=== PATIENT | male | born 1950 | race Caucasian/White ===

== ENCOUNTER 2017-08-27 16:13 | Inpatient (IN) | payer MEDICARE ==
[~2017-08-27] VITALS: Ht 167.6 cm; Wt 60.1 kg
[~2017-08-27 16:13] MED LIST: ADVAIR HFA 230M12 GM INH; ASPIR 8181 MG PO; ASPIRIN325 PO; AUGMENTIN 875875 MG PO; FLOMAX0.4 MG PO; HYDROCODONE-AP1 EAC6 PO; LIPITOR10 MG PO; MOBIC7.5 MG PO; MUCINEX TA600 MG/TA2 PO; OMEPRAZOLE40 MG PO; PACERONE 200 M200 M1 PO; PREDNISONE 10 M10 MG PO; PROAIR RESPICL90 MCG IH; SINGULAIR 10 MG10 M1 PO; SPIRIVA INH; ZANAFLEX2 MG PO
[2017-08-27 16:27] VITALS: BP 117/71
--- NOTE | 2017-08-27 16:41 | NUR ---
PATIENT WAS SATTING 89-90 WITH ROOM AIR ASSESSMENT WAS BEING COMPLETED. PLACED ON O2 AT 2LPM AT 1639 AND SAO2 AT 1642 WAS 95%
[2017-08-27 17:26] LABS: HEMATOCRIT 36.5 % (42.0-52.0); HEMOGLOBIN 12.1 gm/dL (14.0-18.0); MCH 29.5 pg (26.0-34.0); MCHC 33.1 g/dL (28.0-37.0); MCV 89.1 fL (80.0-100.0); MPV 6.6 fl. (7.2-11.1); NUCLEATED RBCS 0 /100WBC; PLATELET COUNT* 208 thou/uL (150-400); RDW-CV 13.8 % (10.5-14.5); WBC 11.4 thou/uL (4.0-11.0)
[2017-08-27 17:38] LABS: CALCIUM 8.4 mg/dL (8.5-10.1); CREATININE 0.7 mg/dL (0.6-1.3); POTASSIUM 4.1 mmol/L (3.5-5.1)
[2017-08-27 17:50] LABS: ALBUMIN 2.8 g/dL (3.4-5.0); TOTAL BILIRUBIN 0.3 mg/dL (<0.1-1.0); TOTAL PROTEIN 6.7 g/dL (6.4-8.2)
[2017-08-27 17:51] LABS: INFLUENZA A ANTIGEN None Detected (None Detect); INFLUENZA B ANTIGEN None Detected (None Detect)
[2017-08-27 18:22] LABS: ABSOLUTE LYMPHOCYTES 2.4 thou/uL (0.8-5.3); ABSOLUTE MONOCYTES 0.7 thou/uL (0.0-1.2); ABSOLUTE NEUTROPHILS 8.3 thou/uL (1.6-8.1); PLATELET ESTIMATE ADEQUATE
[2017-08-27 20:02] LABS: URINE BILIRUBIN NEGATIVE (Negative); URINE BLOOD 2+ (Negative); URINE CLARITY CLEAR; URINE COLOR YELLOW; URINE GLUCOSE-RANDOM NEGATIVE (Negative); URINE KETONES TRACE (Negative); URINE LEUKOCYTES-REFLEX NEGATIVE (Negative); URINE NITRITE-REFLEX NEGATIVE (Negative); URINE PROTEIN TRACE (Negative); URINE SPECIFIC GRAVITY 1.015 (1.005-1.030); URINE UROBILINOGEN 0.2 E.U./dl (0.2-1.0)
[2017-08-27 20:07] LABS: APTT 32.5 Seconds (25.0-31.3); INR 1.2; PROTIME 11.8 Seconds (9.20-11.50)
[2017-08-27 20:08] LABS: SQUAMOUS 4-10 Moderate /LPF (0-3)
[2017-08-27 20:09] LABS: BACTERIA-REFLEX 1-9 Few /HPF (None Seen); CASTS None Seen /LPF (None Seen); CRYSTALS None Seen /LPF (None Seen); MUCUS None Seen strn/LPF (None Seen); URINE RBC 3-10 Few /HPF (0-2)
[2017-08-27 20:10] LABS: URINE WBC-REFLEX 0-5 Rare /HPF (0-5)
[2017-08-27 22:13] VITALS: BP 107/56
[2017-08-27 22:15] VITALS: BP 121/66
--- NOTE | 2017-08-27 22:15 | NUR ---
PT ADMITTED TO FLOOR PER CART ACCOMPANIED BY ER STAFF WITH BELONGINGS. ORIENTED TO ROOM AND CALL LITE, HISTORY OBTAINED AND ASSESSMENT PERFORMED, SEE ADMIT NOTES. PT CO BACK PAIN, MOANING, RATING PAIN 8/10 AND REQUESTING PAIN MEDS. AOX4, COOPERATIVE. INSTRUCTED ON FALL PRECAUTIONS, BED ALARM AND PT AGREEABLE TO ASK FOR ASSISTANCE WHEN GETTING OOB. LAC IVF INFUSING PER PUMP. O2 4L TO KEEP SATS 95%.CONGESTED COUGH HEARD. LUNGS COARSE. WILL CONTINUE TO MONITOR AND PROVIDE CARES NEEDED.
--- NOTE | 2017-08-28 05:37 | NUR ---
NEW ADMIT THIS SHIFT. RECEIVING FENTANYL EVERY 2-3 HOURS IV FOR CO SEVERE BACK PAIN. ZOFRAN GIVEN FOR CO NAUSEA WITHOUT EMESIS. UP WITH ASSIST TO USE URINAL. SCROTAL EDEMA NOTED-PT STATES HE HAS HAD IT FOR AWHILE AND DRS ARE AWARE. O24L NC. AOX4, CAN BE IMPULSIVE AT TIMES. LAC IVF INFUSING PER PUMP. REFUSING EARLY AM LAB BECAUSE HE WANTED TO SLEEP. UROLOGY AND IR TO SEE PT. ABLE TO USE CALL LITE AND MAKE NEEDS KNOWN.
[2017-08-28 07:30] VITALS: BP 113/68
[2017-08-28 15:45] VITALS: BP 118/68
--- NOTE | 2017-08-28 16:00 | NUR ---
UNABLE TO SEE PT.AT THIS TIME. DR.TAD SHARPE IN SEEING PT. WILL SEE IN AM.
--- NOTE | 2017-08-28 19:25 | NUR ---
PATIENT A&OX4, 4L O2 VIA NC, IV LEFT AC FLUIDS INFUSSING. UP STAND BY ASSIST, STEADY GAIT. C/O BACK PAIN, CHRONIC, PARTIAL RELIEF WITH MEDICATION. NO OTHER CONCERNS AT THIS TIME. ASKED PATIENT ABOUT PREVIOUS HEALTH CARE PROVIDER, CALLED AND SPOKE WITH NURSE, NO PSA LAB WAS DRAWN WITH PRIMARY PHYSICIAN. APPROPRIATE AND COOPORATIVE WITH CARE.
[2017-08-28 19:41] VITALS: BP 110/78
[2017-08-29 05:07] LABS: HEMATOCRIT 35.8 % (42.0-52.0); HEMOGLOBIN 11.6 gm/dL (14.0-18.0); MCH 29.2 pg (26.0-34.0); MCHC 32.4 g/dL (28.0-37.0); MPV 7.2 fl. (7.2-11.1); RBC 3.98 mil/uL (4.50-6.00); RDW-CV 14.2 % (10.5-14.5); WBC 10.3 thou/uL (4.0-11.0)
[2017-08-29 05:08] LABS: CALCIUM 8.6 mg/dL (8.5-10.1); POTASSIUM 4.9 mmol/L (3.5-5.1)
--- NOTE | 2017-08-29 06:20 | NUR ---
ASSESSMENT COMPLETE. PT SLEPT MOST OF THE NIGHT. PT PAIN CONTROLLED WITH SCHEDULED AND PRN PAIN MEDICATIONS. PT HAS IV FLUIDS INFUSING IN LEFT AC. PT IS ON 2L PER NC WITH [place] SATS. PT HAD LOW GRADE TEMP, TYLENOL GIVEN AND TEMP CAME DOWN. PT DENIES N/V. PT USES URINAL. PT TURNS SELF IN BED. SEE ASSESSMENT AND VITALS FOR OTHER DETAILS. CALL LIGHT WITHIN REACH, WILL CONTINUE TO MONITOR
[2017-08-29 07:50] VITALS: BP 113/69
[2017-08-29 15:43] VITALS: BP 109/77
--- NOTE | 2017-08-29 16:00 | NUR ---
PT.RESTING IN BED. HE WAS ALERT AND ORIENTED. STATED HE LIVES WITH HIS DAUGHTER,HER AND THEIR CHILDREN. PILY MOTHER COMES AND STAYS DURING THE DAY AT THEIR HOUSE. PT.HAS LIVED THERE SINCE HIS IN JANUARY. HE SAID HE IS DEPRESSED. HE SAID HE WASN'T FEELING GOOD IN MAY.SO WENT TO [facility] AND HAD SOME BLOOD DRAWN. EVERYTHING CAME BACK OK. HE WENT TO [facility] OVER AND WAS OK. IN JUL. HE STARTED HAVING LEG AND LOW BACK PAIN. PAST FEW DAYS HE HAD BEEN UNABLE TO GET OUT OF BED WITHOUT EXCRUITIATING PAIN. HE FEELS BETTER BEING ON PAIN MED. HE HOPES TO GO HOME AT DISCHARGE. HE SAID THEY HAVE NO STAIRS. HE WOULD LIKE HOME HEALTH. HE FEELS HIS SON IN [place] MOTHER COULD DRIVE HIM TO APPTS.,ETC.IF NEEDED. HE DOES HAVE A WC,WALKER,NEBULIZER AND HOME O2 THROUGH [facility]. CM WILL FOLLOW FOR DISCHARGE.
--- NOTE | 2017-08-29 17:28 | NUR ---
PATIENT IS ALERT AND ORIENTED TODAY, PLEASANT TODAY. HAS COMPLAINED OF SOME PAIN TODAY THAT IS SOMEWHAT CONTROLLED WITH ORAL AND IV PAIN MEDICATIONS, PAIN WAS WORSENED WITH MOVEMENTS TO AND FROM PROCEDURES. URINATING OKAY PER URINAL. VITAL SIGNS STABLE ON 4 LITERS OF OXYGEN THROUGH NASAL CANNULA. CALL LIGHT IN REACH, WILL CONTINUE TO MONITOR.
[2017-08-30] VITALS: BP 112/62
--- NOTE | 2017-08-30 04:51 | NUR ---
PATIENT SLEPT WELL DURING THIS SHIFT. PT C/O BACK PAIN AND RECEIVED OXYCODONE 15MG PO SCHEDULED. PT ABLE TO RETURN TO SLEEP AFTERWARDS. PT ON 3LITERS PER NASAL CANNULA. FLUIDS INFUSING PER DR ORDER. PT MADE NPO FOR BONE SCAN TODAY. FREQUENTLY USED ITEMS AND CALL LIGHT WITHIN REACH. WILL CONTINUE TO MONITOR.
[2017-08-30 10:06] LABS: TROPONIN-I LEVEL 0.32 ng/mL (<0.06)
[2017-08-30 10:09] LABS: ABSOLUTE LYMPHOCYTES 1.5 thou/uL (0.8-5.3); ABSOLUTE MONOCYTES 0.4 thou/uL (0.0-1.2); ABSOLUTE NEUTROPHILS 6.5 thou/uL (1.6-8.1); BASOPHILS 0.2 %; HEMATOCRIT 36.9 % (42.0-52.0); HEMOGLOBIN 11.9 gm/dL (14.0-18.0); LYMPHOCYTES 17.7 %; MCHC 32.4 g/dL (28.0-37.0); MCV 92.6 fL (80.0-100.0); MONOCYTES 5.2 %; MPV 7.6 fl. (7.2-11.1); NUCLEATED RBCS 1 /100WBC; PLATELET COUNT* 260 thou/uL (150-400); POLYS 76.9 %; RBC 3.98 mil/uL (4.50-6.00); RDW-CV 14.6 % (10.5-14.5); WBC 8.4 thou/uL (4.0-11.0)
[2017-08-30 10:14] VITALS: BP 113/71
[2017-08-30 10:22] LABS: CALCIUM 8.4 mg/dL (8.5-10.1); POTASSIUM 5.4 mmol/L (3.5-5.1)
--- NOTE | 2017-08-30 10:22 | NUR ---
PATIENT IS ALERT AND ORIENTED. WHILE DOING MORNING ASSESSMENT HEART RATE WAS ELEVATED, OTHER VITAL SIGNS STABLE ON 4 LITERS OF OXYGEN THROUGH NASAL CANNULA. EKG WAS ORDERED STAT AND DR NOTIFIED OF RESULTS. ORDERED LAB WORK AND A TRANSFER TO TELE TO HAVE A MONITOR AND MEDICATION DRIP. PATIENT TRANSFERRED VIA BED WITH OXYGEN AND IV POLE TO ROOMO 219 AND REPORT GIVEN TO NURSE AT BEDSIDE.
[2017-08-30 10:35] LABS: ALBUMIN 2.4 g/dL (3.4-5.0); TOTAL BILIRUBIN 0.3 mg/dL (<0.1-1.0); TOTAL PROTEIN 6.3 g/dL (6.4-8.2)
[2017-08-30 11:30] VITALS: BP 108/66
--- NOTE | 2017-08-30 15:39 | 2DMMODE ---
[place] [address] 2 D/M-MODE ECHOCARDIOGRAM Name: MARK PINEDA ASUNCION Room: [address] IN [facility]#: [id number] Admission: 08/27/17 Attend Phys: Prashant Liao, Discharge: Date of : 46 Date of Service: 08/30/17 1539 Report #: [id number] THIS REPORT FOR: //name// APPROVED REPORT Study performed: 08/30/2017 10:16:50 EXAM: Comprehensive 2D, Doppler, and color-flow Echocardiogram Patient Location: In-Patient Room #: 219 Status: routine BSA: 1.71 HR: 130 bpm BP: 112/62 mmHg Rhythm: Atrial Fibrillation Other Information Study Quality: Good Indications Arrhythmia COPD 2D Dimensions LVEF(%): 65.00 (>50%) IVSd: 10.64 (7-11mm) LVOT Diam: 20.45 (18-24mm) LVDd: 44.07 mm PWd: 10.92 (7-11mm) Ascending Ao: 33.65 (22-36mm) LVDs: 28.48 (25-40mm) Aortic Root: 32.31 mm Diaz's LVEF: 65.00 % Volumes Left Atrial Volume (Systole) LA ESV Index: 45.20 mL/m2 Aortic Valve AoV Peak Rik.: 1.36 m/s AO Peak Gr.: 7.41 mmHg LVOT Max P.97 mmHg AO Mean Gr.: 4.71 mmHg LVOT Mean P.28 mmHg LVOT Max V: 1.11 m/s AO V2 VTI: 18.88 cm LVOT Mean V: 0.69 m/s TASHA (VTI): 2.53 cm2 LVOT V1 VTI: 14.51 [place] [address] 2 D/M-MODE ECHOCARDIOGRAM Name: MARK PINEDA Room: [address] [place] .#: [id number] Admission: 08/27/17 Attend Phys: Prashant Liao, Discharge: Date of : 46 Date of Service: 08/30/17 1539 Report #: [id number] MV Decel. Time: 131.81 ms MV PHT: 38.23 ms MVA (PHT): 5.76 cm2 TDI Lateral E' Rik.: 0.13 m/s Pulmonary Valve PV Peak Rik.: 0.87 m/s PV Peak Gr.: 3.01 mmHg Tricuspid Valve TR Peak Gr.: 25.60 mmHg RVSP: 40.00 mmHg Left Ventricle The left ventricle is normal size. There is normal LV segmental wall motion. There is normal left ventricular wall thickness. Left ventricular systolic function is normal. The left ventricular ejection fraction is within the normal range. LVEF is 55-60%. This study is not technically sufficient to allow evaluation of the LV diastolic function due to atrial fibrillation. Right Ventricle Right ventricle is dilated. The right ventricular systolic function is normal. Atria Left atrium is moderately dilated. Right atrium is dilated. Aortic Valve Mild aortic valve sclerosis. No aortic regurgitation is present. There is no aortic valvular stenosis. Mitral Valve The mitral valve is normal in structure. Moderate mitral regurgitation. No evidence of mitral valve stenosis. Tricuspid Valve The tricuspid valve is normal in structure. Mild tricuspid regurgitation. The RVSP is 40-45 mmHg. Pulmonic Valve The pulmonary valve is normal in structure. There is no pulmonic valvular regurgitation. Great Vessels The aortic root is normal in size. IVC [place] [address] 2 D/M-MODE ECHOCARDIOGRAM Name: MARK PINEDA Room: [address] IN [facility]#: [id number] Admission: 08/27/17 Attend Phys: Prashant Liao, Discharge: Date of : 46 Date of Service: 08/30/17 1539 Report #: [id number] <50% with inspiration. Pericardium There is no pericardial effusion. <Conclusion> The left ventricle is normal size. There is normal left ventricular wall thickness. Left ventricular systolic function is normal. The left ventricular ejection fraction is within the normal range. LVEF is 55-60%. This study is not technically sufficient to allow evaluation of the LV diastolic function due to atrial fibrillation. Right ventricle is dilated. Left atrium is moderately dilated. Right atrium is dilated. Mild aortic valve sclerosis. No aortic regurgitation is present. There is no aortic valvular stenosis. The mitral valve is normal in structure. Moderate mitral regurgitation. No evidence of mitral valve stenosis. Mild tricuspid regurgitation. The RVSP is 40-45 mmHg. IVC is dilated and collapses <50% with inspiration. There is no pericardial effusion. There is normal LV segmental wall motion. <ELECTRONICALLY SIGNED> By: David Parker MD, FACC 08/30/17 1539 1539 1539 David Parker MD, FACC /INF
[2017-08-30 16:00] VITALS: BP 129/90
[2017-08-30 20:05] VITALS: BP 117/73
[2017-08-31] VITALS: BP 142/83
[2017-08-31 04:00] VITALS: BP 127/71
[2017-08-31 05:18] LABS: PREALBUMIN 15.5 mg/dL (18.0-35.7)
[2017-08-31 05:24] LABS: ALBUMIN 2.5 g/dL (3.4-5.0); CALCIUM 8.7 mg/dL (8.5-10.1); CREATININE 0.7 mg/dL (0.6-1.3); POTASSIUM 5.1 mmol/L (3.5-5.1); TOTAL BILIRUBIN 0.3 mg/dL (<0.1-1.0); TOTAL PROTEIN 6.2 g/dL (6.4-8.2)
[2017-08-31 07:30] VITALS: BP 122/60
--- NOTE | 2017-08-31 07:48 | NUR ---
Pt reports he has back pain, rating 8/10. States he gets some relief with ordered dose of Hydromorphone; pt found to be asleep shortly after receiving dose. Pt up about every 30-60 minutes to void; uses urinal at bedside. VSS. Pt in SR at start of shift, and Diltiazem gtt infusing at 5mg/hr at that time; however, pt went back into Afib later, rate 100's to 130's, but as high as 170s with any activity (e.g. when sitting up to void). HR returns to upper 90's to 110's when at rest. NPO since MA for bone biopsy scheduled for today. Will continue to monitor.
[2017-08-31 08:29] LABS: HEMATOCRIT 33.9 % (42.0-52.0); HEMOGLOBIN 11.3 gm/dL (14.0-18.0); MCH 29.8 pg (26.0-34.0); MCHC 33.2 g/dL (28.0-37.0); MCV 89.8 fL (80.0-100.0); MPV 7.3 fl. (7.2-11.1); NUCLEATED RBCS 1 /100WBC; PLATELET COUNT* 270 thou/uL (150-400); RBC 3.78 mil/uL (4.50-6.00); WBC 8.3 thou/uL (4.0-11.0)
[2017-08-31 09:09] LABS: ABSOLUTE LYMPHOCYTES 1.4 thou/uL (0.8-5.3); ABSOLUTE MONOCYTES 0.2 thou/uL (0.0-1.2); ABSOLUTE NEUTROPHILS 6.7 thou/uL (1.6-8.1); ANISOCYTOSIS 1+; PLATELET ESTIMATE ADEQUATE; POLYCHROMASIA 1+
[2017-08-31 09:10] LABS: POIKILOCYTOSIS 1+
--- NOTE | 2017-08-31 14:10 | EKG ---
[place] [address] ELECTROCARDIOGRAM REPORT Name: MARK PINEDA Room: [address] ADM IN R.#: [id number] Admission: 08/27/17 Attend Phys: Prashant Liao MD Discharge: Date of : 46 Report #: [id number] THIS REPORT FOR: //name// [facility] Test Date: 2017-08-30 Test Time: 08:48:13 Pat Name: MARK PINEDA Department: Room: [facility] Gender: M Breakfast And Room Attendant: : 1950 Requested By: Mihir Callaway Order Number: [id number] Efren MD: David Parker Measurements Intervals [place] Rate: 166 P: GA: QRS: 98 QRSD: 138 T: 35 QT: 293 QTc: 488 Interpretive Statements Atrial fib with rapid response Right bundle branch block Compared to ECG 07/05/2016 08:14:56 Right bundle-branch block now present Sinus rhythm no longer present Electronically Signed On 08-31-2017 14:10:34 FLAT CUTTER by David Parker [email or web address] <ELECTRONICALLY SIGNED> By: David Parker MD, [facility] 08/31/17 1410 0848 0848 David Parker MD, [facility] /EPI
--- NOTE | 2017-08-31 14:11 | EKG ---
[place] [address] ELECTROCARDIOGRAM REPORT Name: MARK PINEDA Room: [address] ADM IN M.R.#: [id number] Admission: 08/27/17 Attend Phys: Prashant Liao MD Discharge: Date of : 46 Report #: [id number] THIS REPORT FOR: //name// [facility] Test Date: 2017-08-30 Test Time: 08:51:33 Pat Name: MARK PINEDA Department: Room: [address] Gender: M Calcine Furnace Loader: : 1950 Requested By: Prashant Liao Order Number: [id number] Reading MD: David Parker Measurements Intervals [place] Rate: 157 P: IA: QRS: 99 QRSD: 137 T: 19 QT: 299 QTc: 484 Interpretive Statements Atial fib with rapid response Ventricular premature complex Right bundle branch block Compared to ECG 07/05/2016 08:14:56 Ventricular premature complex(es) now present Electronically Signed On 08-31-2017 14:11:36 EMAIL PRODUCTION CONSULTANT by David Parker [email or web address] <ELECTRONICALLY SIGNED> By: David Parker MD, [facility] 08/31/17 1411 0851 0851 David Parker MD, [facility] /EPI
--- NOTE | 2017-08-31 15:24 | EKG ---
[place] [address] ELECTROCARDIOGRAM REPORT Name: MARK PINEDA Room: [address] ADM IN .R.#: [id number] Admission: 08/27/17 Attend Phys: Prashant Liao MD Discharge: Date of : 46 Report #: [id number] THIS REPORT FOR: //name// [facility] Test Date: 2017-08-30 Test Time: 17:28:35 Pat Name: MARK PINEDA Department: Room: [address] Gender: M Optics Technical Officer: AVILA : 1950 Requested By: Prashant Liao Order Number: [id number] Reading MD: Santos Frye Measurements Intervals [place] Rate: 69 P: 0 [place]: 96 QRS: 68 QRSD: 139 T: 19 QT: 398 QTc: 427 Interpretive Statements Sinus rhythm Short [place] interval Right bundle branch block Baseline wander in lead(s) V1 Compared to ECG 07/05/2016 08:14:56 Short [place] interval now present Right bundle-branch block now present Intraventricular conduction delay no longer present Electronically Signed On 08-31-2017 15:24:19 AUTOMATIC COIL MACHINE OPERATOR by Santos Frye [email or web address] <ELECTRONICALLY SIGNED> By: Santos Frye MD, FAC 08/31/17 1524 1728 1728 Santos Frye MD, FAC /EPI
[2017-08-31 15:30] VITALS: BP 133/77
--- NOTE | 2017-08-31 19:23 | NUR ---
PT PARTIALLY PROGRESSING TOWARDS GOALS. PAIN CONTROLLED WITH PRN PAIN MEDICATION. IV FLUIDS INFUSING. TOLERATING HIS DIET WELL WITHOUT NAUSEA OR VOMITING. SOFTWARE ENGINEER DEVELOPER TRACING AFIB. HEART RATE LOW 100'S-190'S MOST OF THIS SHIFT. HEART RATE CONTINUES TO INCREASE WITH ANY ACTIVITY. PATIENT ASYMPTOMATIC. CARDIOLOGY NOTIFIED. NEW ORDERS RECEIVED. CURRENTLY SOFTWARE ENGINEER DEVELOPER TRACING AFIB WITH HEART RATE IN THE 70'S. CARDIZEM GTT ON PATIENT'S EMAR NEEDED FOR HEART RATE >150. PT VOIDING PER URINAL. GOOD URINE OUTPUT. PATIENTS FAMILY AT BEDSIDE ALL THIS SHIFT AND UP TO DATE ON PLAN OF CARE. PATIENTS DAUGHTER WAS ABLE TO SPEAK WITH ONCOLOGY DR GOODMAN ABOUT THE PLAN OF CARE. WAITING FOR BIOPSY RESULTS TO ESTABLISH A TREATMENT PLAN AT THIS TIME. CALL LIGHT WITHIN REACH. HOURLY ROUNDING CHARTED. WILL CONTINUE TO MONITOR.
[2017-09-01 00:14] VITALS: BP 119/68
[2017-09-01 04:00] VITALS: BP 115/72
--- NOTE | 2017-09-01 05:16 | NUR ---
ASSUMED CARE OF PATIENT AT APPROXIMATELY 2200. UPON FIRST ASSESSMENT, PATIENT WAS SLEEPING AND DURING MEDICATION ADMINISTRATION WAS EXTREMELY DROWSY. PATIENT A/O X 4 AND VSS. PATIENT CONTINUES TO BE ON 4L O2 AND IS SATTING WELL ABOVE 93%. PATIENT DENIED PAIN AND REFUSED ANY MEDICATIONS FOR SUCH. PATIENT CONTINUES TO USE URINAL AT BEDSIDE TO VOID. PATIENT HAD VERY LARGE, VERY LOOSE BOWEL MOVEMENT OVERNIGHT (09/01/17). NURSING TO FOLLOW-UP NECESSARY. ALL FALL PRECAUTIONS IN PLACE, INCLUDING CALL LIGHT WITHIN REACH. WILL CONTINUE TO MONITOR CLOSELY.
[2017-09-01 05:34] LABS: CREATININE 0.7 mg/dL (0.6-1.3); POTASSIUM 5.5 mmol/L (3.5-5.1)
[2017-09-01 08:00] VITALS: BP 131/76
[2017-09-01 11:24] VITALS: BP 126/71
[2017-09-01 12:20] VITALS: BP 126/71
--- NOTE | 2017-09-01 12:21 | NUR ---
RECEIVED PT CARE 0700. PT IS ALERT AND ORIENTED X4. VSS. RETAIL SHIFT LEADER TRACING SR. PT DENIES ANY SOA. O2 SAT 93% ON 3L NC. PAIN 8/10 IN HIS BACK. PRN PAIN MEDICATIONS GIVEN WITH GOOD RELIEF. PLANNING FOR DC TODAY IF CARDIOLOGY AND ONCOLOGY OK. AM ASSESSMENT CHARTED. MEDS PER MAR. PATIENT IS ANXIOUS TO DC HOME TODAY. DISCUSSED PLAN WITH PATIENTS DAUGHTER. KEEPING CALL LIGHT WITHIN REACH. WILL CONTINUE TO MONITOR.
[2017-09-01] MEDS ORDERED: OXYCODONE HCL15 MG PO (12:23)
[2017-09-01] MEDS ORDERED: AUGMENTIN 875-1 EACH PO (12:24)
[2017-09-01] MEDS ORDERED: PREDNISONE 10 M10 MG PO (12:24)
[2017-09-01] MEDS ORDERED: PROTONIX40 M1 PO (12:25)
[2017-09-01] MEDS ORDERED: DIGOXIN250 MCG PO (12:25)
[2017-09-01] MEDS ORDERED: CARDIZEM CD180 MG PO (12:26)
[2017-09-01] MEDS ORDERED: TOPROL XL25 MG PO (12:26)
[2017-09-01] MEDS ORDERED: PROPAFENONE 15150 MG PO (12:26)
[2017-09-01] MEDS ORDERED: PRADAXA150 MG PO (12:27)
[2017-09-01] MEDS ORDERED: CASODEX 50 MG T50 M1 PO (12:49)
[2017-09-01] MEDS ORDERED: MUCINEX600 MG PO (12:56)
[2017-09-01 13:10] VITALS: BP 126/71
--- NOTE | 2017-09-01 13:16 | NUR ---
CM SPOKE TO THE PATIENT TO DISCUSS DISCHARGE PLANNING NEEDS AND CHOICE OF HH. PATIENT CHOSE [facility] HIS HAD USE THEIR SERVICES BEFORE. CM CONTACTED [facility] TO INFORM OF THE REFERRAL FOR HH AND FAXED THE PATIENTS FACESHEET AND H&P. PATIENT TO DISCHARGE HOME TODAY. CM WILL REMAIN AVAILABLE TO ASSIST AND FOLLOW NEEDED.
--- NOTE | 2017-09-01 15:44 | NUR ---
RECEIVED DISCHARGE ORDERS PER DR VILLAGOMEZ. CARDIOLOGY OK WITH DC TODAY. NEW SCRIPTS GIVEN WITH MEDICATION INFORMATION SHEETS. CHASE CALLED INTO PATIENTS PHARMACY TO CHECK PRICING. PATIENTS INSURANCE WILL TAKE CARE OF THE MEDICATION PER PHARMACY. IV DISCONTINUED X2. PURCHASING MANAGER/SALES REMOVED AND RETURNED TO NURSES DESK. PATIENT IS DRESSED. ALL BELONGINGS ARE PACKED AND LEAVING WITH PATIENT. PATIENTS DAUGHTER AND SON IN LAW HERE FOR TRANSPORTING PATIENT TO HOME. STATED THE PATIENT LIVES WITH THEM CLOSE TO [facility]. EDUCATED THE PATIENT AND HIS DAUGHTER ABOUT THE PATIENTS F/U APPT WITH PRIMARY, CARDIOLOGY, AND ONCOLOGY. BOTH PATIENT AND DAUGHTER DENIED ANY QUESTIONS OR CONCERNS AT DISCHARGE. LEAVING VIA WHEELCHAIR ACCOMPANIED BY NURSING STAFF.
--- NOTE | 2017-09-05 21:14 | S ---
[place] [address] SURGICAL PATH RPT PROCEDURE Name: SEVEN WEISS ASUNCION Room: [address] IN M.R.#: [id number] Admission: 08/27/17 Date of : 46 Discharge: 09/01/17 Report #: [id number] Path Case #: [id number] PATHOLOGY REPORT COLLECTION DATE: 08/31/2017 RECEIVED DATE: 09/03/2017 SUBMITTING PHYS: Dr. Prashant Lane OTHER PHYS: Dr. Prashant Metzger MD SPECIMEN(S) RECEIVED: A.Bone marrow, biopsy B.Bone marrow, clot and/or particle prep C.Bone marrow, aspirate smears D.Peripheral smear * * * * * * * * * * * * FINAL DIAGNOSIS: Bone marrow aspirate, biopsy, cell clot, and peripheral blood: - Peripheral blood with mild normocytic anemia. - BONE MARROW WITH DIFFUSE METASTATIC CARCINOMA. (SEE COMMENT) COMMENT: The bone marrow is diffusely replaced by metastatic carcinoma. The immunohistochemical profile and clinical history are consistent with a prostate primary. Clinical and radiographic correlation is recommended. As400 Programmer slides are co-reviewed with Dr. Perla Rose. The case will be discussed with Dr. Jorge Metzger and/or his office on 09/06/17. (CLW:; 09/05/2017) PATHOLOGIST: Anika Serrano M.D. REPORT ELECTRONICALLY SIGNED BY: Anika Serrano M.D. DATE/TIME: 09/05/2017 21:13 * * * * * * * * * * * * MICROSCOPIC DESCRIPTION: CBC Data (08/31/17): WBC 8,300 /uL, RBC 3.78, hemoglobin 11.3 g/dL, hematocrit 33.9%, MCV 89.8 fL, MCH 29.8 pg, MCHC 33.2 g/dL, RDW 14.0%, and platelet count 270,000 /uL. Manual white blood cell differential: segs 75%, bands 6%, lymphs 17%, monos 2%. Peripheral Blood Smear: Cytomorphological examination of the Howe's stained peripheral blood smear confirms the provided data. Red blood cells show mild normocytic anemia with mild anisocytosis. No significant poikilocytosis is identified. No schistocytes or microspherocytes are seen. White blood cells [place] [address] SURGICAL PATH RPT PROCEDURE Name: SEVEN WEISS Room: [address]#: [id number] Admission: 08/27/17 Date of : 46 Discharge: 09/01/17 Report #: [id number] Path Case #: [id number] and are without significant dyspoiesis or significant left shift. Lymphocytes are predominantly small, round, and mature appearing with condensed chromatin and scant cytoplasm with admixed large granular lymphocytes. Monocytes are mature. Platelets are adequate in number and mainly normal in morphology with rare larger platelets noted. Aspirate Smear and Touch Imprints: Cytomorphological examination of the Howe's stained aspirate smear show predominantly blood and peripheral blood elements. Cytomorphological examination of Howe's stained touch imprints show scattered cohesive collections of large atypical cells with irregular nuclear contours, variably conspicuous nucleoli and moderate to abundant cytoplasm. Background trilineage hematopoiesis is not identified. Iron stain of the aspirate shows 0/4+ iron positivity. Again, it is predominantly blood and peripheral blood elements with no intact spicules present. No ringed sideroblasts are identified. Core Biopsy and Cell Clot: The decalcified bone marrow core biopsy is adequate. The bone marrow is completely replaced by a metastatic malignant neoplasm. The tumor cells are large with irregular nuclear contours, smudged to vesicular chromatin, and variably conspicuous nucleoli. Abundant focally cleared out cytoplasm is present. Background trilineage hematopoiesis is markedly decreased to absent. Bony trabeculae are diffusely thickened. Blood vessels are unremarkable. The cell clot has collections of cohesive malignant tumor cells that are similar morphologically present amongst bony fragments and blood. Iron stain of the cell clot (Block B1) shows 0/4+ iron positivity. To further evaluate the malignant tumor cells, properly controlled immunohistochemical stains are performed. (Block A1) AE1/AE3: tumor cells reactive PSA: tumor cells weakly reactive PSA-P: tumor cells reactive (Block B1) AE1/AE3: tumor cells reactive PSA: tumor cells reactive PSA-P: tumor cells reactive Flow Cytometry: Flow cytometric immunophenotypic analysis was not performed. Cytogenetics: Cytogenetic chromosomal analysis was not performed. (CLW:; 09/05/2017) GROSS PATHOLOGY: A. Received in formalin labeled "Seven Weiss, core" and consists of a bone core measuring 1.7 cm in length by 0.3 cm in diameter. The specimen is totally submitted as A1 following formalin fixation and decalcification. B. Received in formalin labeled "Seven Weiss, clot" and consists of a 1.0 x 0.7 x 0.4 cm aggregate of blood clot which [place] [address] SURGICAL PATH RPT PROCEDURE Name: SEVEN WEISS ASUNCION Room: [address]#: [id number] Admission: 08/27/17 Date of : 46 Discharge: 09/01/17 Report #: [id number] Path Case #: [id number] ([facility]; 09/03/2017) CLINICAL HISTORY: 67 year-old man with anemia, history of prostate cancer, and radiographic "super scan." INITIAL CPT CODE(S): A; 26392, 62649, 20733, 20428, 35890 B; 49278, 86617, 46227, 98212, 26328 C; 99625, 98829 D; 40957 Professional services performed by [facility] at [facility] [address], [place] [address] Technical services performed by [facility] at [address] [place] [address], [facility] [address] [address]. [facility] [address] [place] [address] PHONE: [phone] DIRECTOR: Frankie Deal M.D. * * * END OF REPORT * * *
== END 2017-09-01 15:20 | disposition home health service (06) | DRG 177 ==
LOC: M.ERS 16:13 → M.TBA-ER 20:53 → M.3W 20:53 → M.2W 08-30 09:27
PROVIDERS: Internal Medicine; Physician Assistant; ADMIT Internal Medicine
PROC: 07DR3ZX Extraction of Iliac Bone Marrow, Percutaneous Approach, Diagnostic (ICD-10-PCS; principal; 2017-08-27)
DX: J69.0 Pneumonitis due to inhalation of food and vomit (principal); E43 Unspecified severe protein-calorie malnutrition; J96.20 Acute and chronic respiratory failure, unspecified whether with hypoxia or hypercapnia; C79.51 Secondary malignant neoplasm of bone; J98.11 Atelectasis; G89.3 Neoplasm related pain (acute) (chronic); C61 Malignant neoplasm of prostate; J44.9 Chronic obstructive pulmonary disease, unspecified; M19.90 Unspecified osteoarthritis, unspecified site; N43.3 Hydrocele, unspecified; F12.90 Cannabis use, unspecified, uncomplicated; F17.210 Nicotine dependence, cigarettes, uncomplicated; M54.9 Dorsalgia, unspecified; G54.8 Other nerve root and plexus disorders; I48.91 Unspecified atrial fibrillation; Z79.899 Other long term (current) drug therapy; Z79.82 Long term (current) use of aspirin; Z68.21 Body mass index [BMI] 21.0-21.9, adult

== ENCOUNTER 2017-10-31 17:46 | Inpatient (IN) | payer MEDICARE ==
[~2017-10-31] VITALS: Ht 167.6 cm; Wt 56.4 kg
[~2017-10-31 17:46] MED LIST changes: +AUGMENTIN 875-1 EACH PO; +CARDIZEM CD180 MG PO; +CASODEX 50 MG T50 M1 PO; +DIGOXIN250 MCG PO; +MUCINEX600 MG PO; +OXYCODONE HCL15 MG PO; +PRADAXA150 MG PO; +PROPAFENONE 15150 MG PO; +PROTONIX40 M1 PO; +TOPROL XL25 MG PO
[2017-10-31 17:55] VITALS: BP 135/76
[2017-10-31] MEDS ORDERED: ADVAIR HFA 230M12 GM INH (17:59)
[2017-10-31] MEDS ORDERED: ZYTIGA250 MG PO (18:03)
[2017-10-31] MEDS ORDERED: CELEXA10 MG PO (18:04)
[2017-10-31 18:17] LABS: ABSOLUTE BASOPHILS 0.1 thou/uL (0.0-0.2); ABSOLUTE LYMPHOCYTES 2.6 thou/uL (0.8-5.3); ABSOLUTE MONOCYTES 0.6 thou/uL (0.0-1.2); ABSOLUTE NEUTROPHILS 3.7 thou/uL (1.6-8.1); BASOPHILS 1.1 %; EOSINOPHILS 0.3 %; HEMATOCRIT 38.8 % (42.0-52.0); HEMOGLOBIN 12.8 gm/dL (14.0-18.0); LYMPHOCYTES 37.3 %; MCH 29.6 pg (26.0-34.0); MCHC 32.9 g/dL (28.0-37.0); MONOCYTES 8.8 %; NUCLEATED RBCS 0 /100WBC; PLATELET COUNT* 269 thou/uL (150-400); POLYS 52.5 %; RBC 4.32 mil/uL (4.50-6.00); RDW-CV 19.5 % (10.5-14.5)
[2017-10-31 18:26] LABS: CREATININE 0.5 mg/dL (0.6-1.3); POTASSIUM 4.8 mmol/L (3.5-5.1)
[2017-10-31 18:30] LABS: ALBUMIN 3.2 g/dL (3.4-5.0); CALCIUM 5.6 mg/dL (8.5-10.1); MAGNESIUM 2.2 mg/dL (1.8-2.4); TOTAL BILIRUBIN 0.3 mg/dL (<0.1-1.0); TOTAL PROTEIN 6.2 g/dL (6.4-8.2)
--- NOTE | 2017-10-31 19:18 | NUR ---
CALLED PHARMACY REGARDING ORDER FOR CALCIUM GLUCONATE AT THIS TIME. WAS INSTRUCTED TO WAIT AT LEAST 5 MINUTES AND THEY WILL GET IT MADE UP.
--- NOTE | 2017-10-31 20:56 | NUR ---
RT NOTIFIED AT THIS TIME OF A BUDESONIDE TREATMENT THAT WAS SHOWN SCHEDULED AT THIS TIME.
--- NOTE | 2017-10-31 21:45 | NUR ---
ATTEMPTED TO CALL REPORT AT THIS TIME. INFORMED THAT THE NURSE WILL CALL BACK SHORTLY.
[2017-10-31 22:06] VITALS: BP 114/61
[2017-11-01 04:11] VITALS: BP 125/70
--- NOTE | 2017-11-01 07:07 | NUR ---
Pt admitted last evening from ED with hypocalcemia (Ca++ 5.6 on arrival). Following Ca replacement, Ca++ up to only 5.7 this am. Orders received for further replacement, though meds not available to give at this time. Pt has stage 4 prostate CA with mets to bones. Reports good appetite, though pt has lost approx 15 lbs since previous admmission in August of this year. Inquired about whether he would be receiving his cancer meds during this admission. States he is hopeful of having Calcium levels regulated soon so he may return home. VSS. Will continue to monitor.
[2017-11-01 09:24] VITALS: BP 120/62
[2017-11-01] MEDS ORDERED: CALCIUM 500 +1 EAC5 PO (09:37)
[2017-11-01] MEDS ORDERED: OYSTER SHELL C500 MG PO (09:37)
--- NOTE | 2017-11-01 10:17 | NUR ---
CM ASSESSMENT: Pt is A&O. Resides at home with his dtr. Pt states that he has been doing pretty good at home. Pt recently dc from the hospital in August with [facility], Pt stated that therapy helped him alot. CM inquired into if Pt wants HH at dc, Pt stated no. Pt did ask about in home care providers, Pt does not have [place] [facility], informed that he could only have in home care providers if he paid privately. Pt has home DME from when his was life, but states that he does not use any of it. No hx of SNF. Family will provide dc transportation. Following.
--- NOTE | 2017-11-01 11:29 | NUR ---
RECEIVED RPEORT. ASSUMED CARE OF PT AT 0730. VSS, O2 SAT 93% ON RA. PT A&OX4, APPEARS A LITTLE ANXIOUS. RESTORATIVE ART EMBALMER IN PLACE TRACING SR WITH BBB. AM ASSESSMENT AND VITALS COMPLETED CHARTED. PT REPORTS LOWER BACK PAIN AT 6/10. RECEIVED PO PAIN MEDICATION WITH PARTIAL RELIEF, SEE EMAR FOR ADMINISTRATION AND REASSESSMENT OF PAIN MEDS. IV SALINE LOCKED; CALCIUM INFUSED THIS AM PER ORDERS, REDRAW ORDERED. PT INFORMED OF PLAN OF CARE, COMMUNICATES UNDERSTANDING. PT MAY DC TODAY PENDING CALCIUM LEVEL. FAMILY AT BEDSIDE THIS AM. PT UP AD SIMEON IN ROOM; BM X2 THIS AM. PT EATING AND DRINKING WITHOUT ISSUE. LOW FALL RISK PRECAUTIONS IN PLACE. CALL LIGHT IS WITHIN REACH. WILL CONTINUE TO MONITOR.
[2017-11-01 13:31] VITALS: BP 120/62
--- NOTE | 2017-11-01 14:03 | NUR ---
DISCHARGE ORDERS RECIEVED. DISCHARGE COMPLETED DOCUMENTED. DISCHARGE SUMMARY GONE OVER WITH THE PT, PT COMMUNICATES UNDERSTANDING. SCRIPTS GIVEN. IV AND CARDAIC MONITOR REMOVED. ALL BELONGINGS GATHERED AND SENT WITH THE PT. VSS AT TIME OF DC. PT EATING AND DRINKING WITHOUT ISSUE. PT VOIDING WITHOUT ISSUE. PT REPORTS PAIN IS CONTROLLED. PT WAITING FOR RIDE AT THIS TIME. CALL LIGHT IS WITHIN REACH. LOW FALL RISK PRECAUTIONS ARE IN PLACE. WILL CONTINUE TO MONITOR UNTILL PT IS READY TO LEAVE FACILITY.
--- NOTE | 2017-11-01 15:37 | EKG ---
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: [facility] : 1950 Requested By: Ama Hughes Order Number: [id number] MD: Inocencio Mukherjee Measurements Intervals [place] Rate: 65 P: 0 DC: 94 QRS: 80 QRSD: 136 T: 42 QT: 486 QTc: 506 Interpretive Statements Sinus rhythm Atrial premature complex Short DC interval Right bundle branch block Compared to ECG 08/30/2017 17:28:35 Atrial premature complex(es) now present Electronically Signed On 11-01-2017 15:37:23 B[employer]ER by Inocencio Mukherjee [email or web address] <ELECTRONICALLY SIGNED> By: Inocencio Mukherjee MD, FACC 11/01/17 1537 194 194 Inocencio Mukherjee MD, FAC /EPI
--- NOTE | 2017-11-01 15:37 | EKG ---
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 <ELECTRONICALLY SIGNED> By: Inocencio Mukherjee MD, FACC 11/01/17 1537 38 38 Inocencio Mukherjee MD, FACC /EPI
== END 2017-11-01 15:07 | disposition home or self-care (01) | DRG 641 ==
LOC: M.ERS 17:46 → M.TBA-ER 19:50 → M.2W 19:50
PROVIDERS: Nurse Practitioner Family; ADMIT Internal Medicine
DX: E83.51 Hypocalcemia (principal); C79.51 Secondary malignant neoplasm of bone; Z79.899 Other long term (current) drug therapy; J44.9 Chronic obstructive pulmonary disease, unspecified; G89.29 Other chronic pain; M19.90 Unspecified osteoarthritis, unspecified site; F17.210 Nicotine dependence, cigarettes, uncomplicated; K21.9 Gastro-esophageal reflux disease without esophagitis; I48.91 Unspecified atrial fibrillation; C61 Malignant neoplasm of prostate

== ENCOUNTER 2017-11-09 11:21 | Emergency (ER) | payer MEDICARE ==
[~2017-11-09] VITALS: Ht 167.6 cm; Wt 54.4 kg
[~2017-11-09 11:21] MED LIST changes: +CALCIUM 500 +1 EAC5 PO; +CELEXA10 MG PO; +OYSTER SHELL C500 MG PO; +ZYTIGA250 MG PO
[2017-11-09 12:11] LABS: ABSOLUTE LYMPHOCYTES 1.3 thou/uL (0.8-5.3); ABSOLUTE MONOCYTES 0.3 thou/uL (0.0-1.2); ABSOLUTE NEUTROPHILS 4.2 thou/uL (1.6-8.1); BASOPHILS 0.7 %; EOSINOPHILS 0.7 %; HEMATOCRIT 44.9 % (42.0-52.0); HEMOGLOBIN 14.8 gm/dL (14.0-18.0); LYMPHOCYTES 22.7 %; MCH 29.6 pg (26.0-34.0); MCHC 32.8 g/dL (28.0-37.0); MCV 90.2 fL (80.0-100.0); MONOCYTES 4.4 %; NUCLEATED RBCS 0 /100WBC; PLATELET COUNT* 325 thou/uL (150-400); POLYS 71.5 %; RBC 4.98 mil/uL (4.50-6.00); RDW-CV 19.5 % (10.5-14.5); WBC 5.9 thou/uL (4.0-11.0)
[2017-11-09 12:21] LABS: CREATININE 0.6 mg/dL (0.6-1.3); POTASSIUM 5.3 mmol/L (3.5-5.1)
[2017-11-09 12:25] LABS: ALBUMIN 3.9 g/dL (3.4-5.0); TOTAL BILIRUBIN 0.7 mg/dL (<0.1-1.0); TOTAL PROTEIN 7.3 g/dL (6.4-8.2)
[2017-11-09 14:21] VITALS: BP 112/65
--- NOTE | 2017-11-09 18:14 | EKG ---
[place] [address] ELECTROCARDIOGRAM REPORT Name: MARK PINEDA Room: [facility]#: [id number] Admission: 11/09/17 Attend Phys: Discharge: 11/09/17 Date of : 46 Report #: [id number] THIS REPORT FOR: //name// [facility] ED Test Date: 2017-11-09 Test Time: 14:07:36 Pat Name: MARK PINEDA Department: Room: Gender: M Bundle Helper: Susy VELAZQUEZ : 1950 Requested By: Kim Ballesteros Order Number: [id number] MD: Inocencio Mukherjee Measurements Intervals [place] Rate: 77 P: 71 IA: 102 QRS: 79 QRSD: 134 T: 40 QT: 437 QTc: 495 Interpretive Statements Sinus rhythm Short IA interval Right bundle branch block Baseline wander in lead(s) V4 Compared to ECG 10/31/2017 19:40:16 Atrial premature complex(es) no longer present Electronically Signed On 11-09-2017 18:14:25 CDT by Inocencio Mukherjee [email or web address] <ELECTRONICALLY SIGNED> By: Inocencio Mukherjee MD, FACC 11/09/17 1814 1407 1407 Inocencio Mukherjee MD, FAC /EPI
== END 2017-11-09 14:22 | disposition home or self-care (01) ==
LOC: M.ERS 11:21
PROVIDERS: Physician Assistant
DX: R19.7 Diarrhea, unspecified (principal); E83.51 Hypocalcemia; Z85.46 Personal history of malignant neoplasm of prostate; J44.9 Chronic obstructive pulmonary disease, unspecified; M19.90 Unspecified osteoarthritis, unspecified site

== ENCOUNTER → 2019-02-21 | Outpatient (CLI) | payer MEDICARE ==
[~2019-02-21] VITALS: Ht 167.6 cm; Wt 61.7 kg
[2019-02-21 12:07] LABS: HEMATOCRIT 44.7 % (42.0-52.0); HEMOGLOBIN 14.9 gm/dL (14.0-18.0); MCH 28.1 pg (26.0-34.0); MCHC 33.4 g/dL (28.0-37.0); MCV 84.3 fL (80.0-100.0); MPV 6.3 fl. (7.2-11.1); RBC 5.3 mil/uL (4.50-6.00); RDW-CV 15.9 % (10.5-14.5)
[2019-02-21 12:18] LABS: CALCIUM 9.4 mg/dL (8.5-10.1); CREATININE 0.7 mg/dL (0.6-1.3); POTASSIUM 4.1 mmol/L (3.5-5.1)
[2019-02-21 12:21] VITALS: BP 11/57; BP 111/57
[2019-02-21 12:21] LABS: APTT 29.9 Seconds (25.0-31.3); INR 0.9; PROTIME 9.6 Seconds (9.20-11.50)
[2019-02-21 14:05] VITALS: BP 111/62
[2019-02-21 14:23] VITALS: BP 111/62
== END | disposition home or self-care (01) ==
LOC: M.INT 02-19 10:30
PROVIDERS: Radiology Diagnostic Radiology
DX: Z45.2 Encounter for adjustment and management of vascular access device (principal); C61 Malignant neoplasm of prostate; I48.91 Unspecified atrial fibrillation; J44.9 Chronic obstructive pulmonary disease, unspecified; G89.29 Other chronic pain; M19.90 Unspecified osteoarthritis, unspecified site; Z98.890 Other specified postprocedural states; Z79.899 Other long term (current) drug therapy; Z79.01 Long term (current) use of anticoagulants; Z87.01 Personal history of pneumonia (recurrent); Z79.891 Long term (current) use of opiate analgesic

== ENCOUNTER → 2019-04-29 | Outpatient (CLI) | payer MEDICARE | LOC: M.NUC 10:56 | DX: C61 Malignant neoplasm of prostate (principal); C79.51 Secondary malignant neoplasm of bone; R97.20 Elevated prostate specific antigen [PSA] ==